=== PATIENT | male | born 1955 | race Caucasian/White ===

== ENCOUNTER 2018-05-05 07:31 | Day surgery (SDC) | payer BC ==
[2018-04-29 11:50] VITALS: BMI 33.3
[2018-05-05] MEDS ORDERED: PROPOFOL 20 ML ONE ×2 (07:34)
[2018-05-05 09:00] VITALS: TEMP 97.5
[2018-05-05 09:04] VITALS: BP 115/74; PULSE 79
== END 2018-05-05 09:00 | disposition home or self-care (01) ==
LOC: FASU-ENDO 07:31
PROVIDERS: ATTEND Internal Medicine Gastroenterology
PROC: 0DJD8ZZ Inspection of Lower Intestinal Tract, Via Natural or Artificial Opening Endoscopic (ICD-10-PCS; principal; 2018-05-05 08:22)
DX: Z12.11 Encounter for screening for malignant neoplasm of colon (principal); K57.30 Diverticulosis of large intestine without perforation or abscess without bleeding